=== PATIENT | male | born 1935 | race Caucasian/White ===

== ENCOUNTER → 2016-04-16 | Outpatient (CLI) | payer OTHER ==
[2016-04-16 12:38] LABS: BILIRUBIN,URINE NEGATIVE (NEG); CLARITY,URINE CLEAR (CLEAR); GLUCOSE, URINE (UA) NEGATIVE (NEG); LEUKOCYTE ESTERASE ,URINE NEGATIVE (NEG); NITRATE,URINE NEGATIVE (NEG); OCCULT BLOOD,URINE NEGATIVE (NEG); PROTEIN,URINE NEGATIVE (NEG); UROBILINOGEN,URINE 0.2 mg/dL (0.2)
[2016-04-16 12:40] LABS: URINE SAMPLE TYPE VOIDED SPECIMEN
[2016-04-16 12:46] LABS: HEMOGLOBIN A1C 6.63 % (4.2-6.0); MEAN BLOOD GLUCOSE (CALC) 134.779 mg/dL
[2016-04-16 12:51] LABS: RBC,URINE 0-2 /hpf; SQUAMOUS EPITHELIAL CELL,UR RARE
== END ==
LOC: MOB LAB 10:23
DX: E11.9 Type 2 diabetes mellitus without complications (principal); I10 Essential (primary) hypertension; E78.5 Hyperlipidemia, unspecified; E55.9 Vitamin D deficiency, unspecified; R97.20 Elevated prostate specific antigen [PSA]; Z12.5 Encounter for screening for malignant neoplasm of prostate
CPT/HCPCS: 36415; 81001; 82306; 83036; 84443; 99213; G0103; G0463

== ENCOUNTER → 2016-04-24 | Outpatient (CLI) | payer OTHER | LOC: MMPC 10:00 | PROVIDERS: ATTEND Podiatrist Foot & Ankle Surgery | DX: R60.0 Localized edema (principal); L60.3 Nail dystrophy; B35.1 Tinea unguium; E11.42 Type 2 diabetes mellitus with diabetic polyneuropathy; I73.9 Peripheral vascular disease, unspecified; M20.41 Other hammer toe(s) (acquired), right foot; M20.11 Hallux valgus (acquired), right foot; L84 Corns and callosities; M20.42 Other hammer toe(s) (acquired), left foot; M20.12 Hallux valgus (acquired), left foot | CPT/HCPCS: 11721; 99212 ==

== ENCOUNTER → 2016-04-30 | Outpatient (CLI) | payer OTHER | LOC: MMPC 11:11 | PROVIDERS: ATTEND Surgery | DX: K21.9 Gastro-esophageal reflux disease without esophagitis (principal); K22.70 Barrett's esophagus without dysplasia; Z86.010 Personal history of colon polyps; Z80.0 Family history of malignant neoplasm of digestive organs | CPT/HCPCS: 99202; G0463 ==

== ENCOUNTER 2016-05-19 07:46 | Day surgery (SDC) | payer OTHER ==
[~2016-05-19 07:46] MED LIST: LIDOCAINE W/ SODIUM BICARB 0.5 ML SYR ONE; Lactated Ringers 0 ML PRIMARY IV ONE
[2016-05-19] MEDS ORDERED: Lactated Ringers 1,000 ML PRIMARY IV ONE (09:17)
--- NOTE | 2016-05-19 09:46 | GEN.OPNOTE ---
EGD / Colonoscopy Report Surgery Date: 05/19/16 Preoperative Diagnosis: GERD. History of Singleton's. Personal history of colon polyps. Family history of colon cancer. Postoperative Diagnosis: Same. Procedure: #1 esophagogastroduodenoscopy with biopsy. #2 complete colonoscopy with biopsy and destruction of a small polyp at 20 cm from the anal verge. Surgeon: Onofre Galo MD Anesthesia Provider: Jo Berry CRNA Anesthesia Type: MAC Indications: See preoperative diagnosis. EGD Findings: Esophagus: [Normal] GE Junction : [Slightly irregular Z line. No obvious Singleton's change.] Fundus : [Normal] Body : [Normal] Prepyloric : [Mild erythema] Small Intestine : [Normal] A lubricated flexible upper endoscope was inserted and passed through the esophagus and stomach into the duodenum. The duodenum and duodenal bulb were unremarkable. Pyloric channel was patent. There is some erythema in the antrum. Multiple biopsies were taken. Hemostasis was assured. The remainder of the stomach was unremarkable. Air was aspirated. The scope was withdrawn into the distal esophagus. Biopsies were taken at the Z line which was slightly irregular. There are no inflammatory changes. Visually no Singleton's change. Hemostasis was assured. The scope was withdrawn through the remainder of a normal-appearing esophagus and brought through the hypopharynx under suction completing that portion of the procedure. Colonoscopy Findings: Prep : [Excellent] Cecum : [Normal] Ascending : [Scattered diverticuli] Transverse : [Normal] Sigmoid : [Scattered diverticuli. Small polyp at 20 cm biopsied and destroyed.] Rectum : [Normal] Digital Rectal Exam : [Prostate enlarged and firm but nonnodular.] A lubricated flexible colonoscope was inserted and passed to the blind end of the cecum. The blind end of the cecum and ileocecal valve and the appendiceal orifice were all clearly seen. Air was aspirated as the scope was withdrawn. There are diverticuli on both the sigmoid and ascending colon. The only polyp was a small one at 20 cm it was biopsied and destroyed. Otherwise the colonoscopy was normal. The scope was withdrawn completing the procedure. Patient tolerated all aspects of the procedure well without complication. He was taken to outpatient surgery in stable condition. Follow-up will be with my office on an as-needed basis. We will call the biopsy results when available and plan therapy and follow-up accordingly.
[2016-05-19 13:34] VITALS: RESP 16
[2016-05-19 13:36] VITALS: TEMP 98.4
== END 2016-05-19 10:27 | disposition home or self-care (01) ==
LOC: SDSC 07:46
PROVIDERS: ATTEND Surgery
DX: K21.9 Gastro-esophageal reflux disease without esophagitis (principal); Z80.0 Family history of malignant neoplasm of digestive organs; K63.5 Polyp of colon; Z86.010 Personal history of colon polyps
CPT/HCPCS: 00810; 43239 ×2; 45380 ×2; J2704; J7120

== ENCOUNTER → 2016-06-17 | Outpatient (CLI) | payer OTHER ==
[2016-06-17 10:34] LABS: BASOPHILS # (AUTO) 0.02 10*3/UL; BASOPHILS % (AUTO) 0.3 % (0-1); EOSINOPHILS % (AUTO) 7.7 % (0-8); HEMATOCRIT 44.4 % (42.0-52.0); HEMOGLOBIN 14.8 g/dL (14.0-18.0); LYMPHOCYTES # (AUTO) 1.95 10*3/uL; MEAN CORPUSCULAR HEMOGLOBIN 29.5 PG (27-31); MEAN CORPUSCULAR HGB CONC 33.3 g/dL (33-37); MEAN CORPUSCULAR VOLUME 88.4 FL (80-90); MEAN PLATELET VOLUME 9.1 FL (7.4-12.2); MONOCYTES # (AUTO) 0.89 10*3/UL (0.3-0.8); MONOCYTES % (AUTO) 13.7 % (5-15); NEUTROPHILS # (AUTO) 3.13 10*3/UL; NEUTROPHILS % (AUTO) 47.9 % (50-80); RED BLOOD COUNT 5.02 10^6/uL (4.70-6.10)
[2016-06-17 10:41] LABS: PLATELET MORPHOLOGY COMMENT NORMAL MORPHOLOGY (NORM); RBC MORPHOLOGY COMMENT NORMAL MORPHOLOGY (NORM); WBC MORPHOLOGY COMMENT NORMAL MORPHOLOGY (NORM)
[2016-06-17 11:15] LABS: CALCIUM 9.6 mg/dL (8.7-10.7); SERUM ALBUMIN 4.1 g/dL (3.5-4.8)
[2016-06-17 11:58] LABS: CHOL/HDL RATIO 2.36 RATIO (0-4.0); LDL CHOLESTEROL,CALCULATED 51.8 mg/dL
[2016-06-17 12:35] LABS: VITAMIN D 25-HYDROXY 26.9 NG/ML (30-100)
== END ==
LOC: MOB LAB 09:54
DX: E11.9 Type 2 diabetes mellitus without complications (principal); I10 Essential (primary) hypertension; E78.2 Mixed hyperlipidemia; E55.9 Vitamin D deficiency, unspecified; R97.21 Rising PSA following treatment for malignant neoplasm of prostate; D50.9 Iron deficiency anemia, unspecified; K21.9 Gastro-esophageal reflux disease without esophagitis; Z86.010 Personal history of colon polyps; R97.20 Elevated prostate specific antigen [PSA]; Z12.5 Encounter for screening for malignant neoplasm of prostate
CPT/HCPCS: 80053; 80061; 82306; 84443; 85025; 99213; G0103; G0463

== ENCOUNTER → 2016-06-26 | Outpatient (CLI) | payer OTHER | LOC: MMPC 10:00 | PROVIDERS: ATTEND Podiatrist Foot & Ankle Surgery | DX: L60.3 Nail dystrophy (principal); E11.9 Type 2 diabetes mellitus without complications | CPT/HCPCS: 11721 ×2; G0463 ==

== ENCOUNTER → 2016-07-24 | Outpatient (CLI) | payer OTHER ==
[2016-07-24 11:06] LABS: ABG BASE EXCESS -1 MMOL/L (-2-2); ABG OXYGEN SATURATION 94 % (90-100); ABG PCO2 34 MMHG (34-38); ABG PH 7.45 (7.35-7.45); ABG PO2 68 MMHG (65-75); ALLEN TEST YES; COLLECTION SITE RIGHT RADIAL
[2016-07-24 11:07] LABS: ABG PCO2 35 MMHG (34-38); ABG PH 7.41 (7.35-7.45); ABG PO2 73 MMHG (65-75); COLLECTION SITE RIGHT RADIAL
[2016-07-24 11:08] LABS: ABG BASE EXCESS -3 MMOL/L (-2-2); ABG OXYGEN SATURATION 95 % (90-100); ALLEN TEST YES
== END ==
LOC: RT 07-23 09:44
DX: Z77.012 Contact with and (suspected) exposure to uranium (principal)
CPT/HCPCS: 36600; 82803

== ENCOUNTER → 2016-09-04 | Outpatient (CLI) | payer OTHER | LOC: MMPC 10:00 | PROVIDERS: ATTEND Podiatrist Foot & Ankle Surgery | DX: L60.3 Nail dystrophy (principal); L60.0 Ingrowing nail; Q80.9 Congenital ichthyosis, unspecified; E11.9 Type 2 diabetes mellitus without complications; R60.0 Localized edema | CPT/HCPCS: 11721 ×2; G0463 ==

== ENCOUNTER → 2016-09-18 | Outpatient (CLI) | payer OTHER ==
--- NOTE | 2016-09-20 11:41 | DI ---
LEFT KNEE, 09/18/2016 9:46 AM: Clinical History: The submitted history indicates there was pain in the right knee, but a left knee e xam is submitted. Previous Exam: 12/29/2013. 4 views are submitted. The AP and tunnel projections are weight bearing views. A moderate joint effus ion is present. The AP and tunnel views in the lateral view show marked irregularity of the cortical surface of the medial femoral condyle from the midpoint extending posteriorly. There is lateral sublu xation of the patella with complete erosion of the cartilaginous surfaces of the lateral femoral cond yle and lateral facet of the patella. The medial and lateral menisci show faint calcifications indica ting chondrocalcinosis. Readin. Small joint effusion. 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 There is also joint space narrowing in the medial compartment with a markedly irregu lar cortical surface of the medial femoral condyle. 2. Chondrocalcinosis.
== END ==
LOC: ORTHO 09:49
PROVIDERS: ATTEND Orthopaedic Surgery
DX: M25.562 Pain in left knee (principal); M25.462 Effusion, left knee; M17.12 Unilateral primary osteoarthritis, left knee; M11.262 Other chondrocalcinosis, left knee
CPT/HCPCS: 73564

== ENCOUNTER → 2016-09-18 | Outpatient (CLI) | payer OTHER ==
[2016-09-18 13:13] LABS: WBC, BODY FLUID 27.63 10*3/uL
[2016-09-18 13:21] LABS: CRYSTALS, SYNOVIAL FLUID NONE SEEN (NS)
== END ==
LOC: LAB 10:42
PROVIDERS: ATTEND Orthopaedic Surgery
DX: M25.562 Pain in left knee (principal)
CPT/HCPCS: 87070; 87075; 87205; 89060